=== PATIENT | female | born 1995 | race Caucasian/White ===

== ENCOUNTER 2017-10-25 16:38 | Emergency (ER) | payer OTHER ==
[~2017-10-25] VITALS: Ht 157.5 cm; Wt 48.5 kg
[2017-10-25 16:55] LABS: Calcium, Ionized (POC) 1.21 mmol/L (1.10-1.46); Chloride (POC) 106 mmol/L (98-108); Creatinine (POC) 0.7 mg/dL (0.6-1.0); Glucose (ISTAT POC) 84 mg/dL (70-99); Hemoglobin (POC) 10.9 g/dL (12.0-16.0); Sodium (POC) 142 mmol/L (135-148); Total CO2 (POC) 29 mmol/L (21-32)
== END 2017-10-25 17:43 | disposition home or self-care (01) ==
LOC: ER 16:38
DX: R55 Syncope and collapse (principal)
CPT/HCPCS: 80047; 85014; 93005; 93010; 99283